=== PATIENT | female | born 1970 | race Asian ===

== ENCOUNTER 2020-09-11 08:59 | Inpatient (IN) | payer BC ==
[~2020-09-11] VITALS: Ht 154.9 cm; Wt 52.6 kg
[2020-09-11 09:04] VITALS: BP 137/97
[2020-09-11] MEDS ORDERED: KETOROLAC 30 MG/ML VIAL IM ONE (09:35)
--- NOTE | 2020-09-11 09:51 | NUR ---
ophthalmology surgical technician at pt bedside.
--- NOTE | 2020-09-11 10:05 | NUR ---
50 YEAR OLD FEMALE COMPLAINS OF LEFT HIP PAIN X TODAY. PT DENIES INJURY OR FALLING. PT UNABLE TO AMBULATE DUE TO PAIN. PT AOX4, BREATHING EVEN AND UNLABORED, SKIN WARM AND DRY. BED IN LOWEST POSITION, LOCKED, BED RAIL UPX1. PMH - DENIES ALLERGIES - NKA
--- NOTE | 2020-09-11 10:51 | NUR ---
PT CONSENT FOR CT SIGNED
[2020-09-11 10:54] LABS: BASOPHILS # (AUTO) 0.1 K/uL (0.00-0.22); BASOPHILS % (AUTO) 0.7 % (0.0-2.0); EOSINOPHILS % (AUTO) 0.4 % (0.0-4.0); HEMATOCRIT 37.6 % (36-48); HEMOGLOBIN 12.7 g/dL (12.0-16.0); LYMPHOCYTES # (AUTO) 0.8 K/uL (2.5-16.5); MEAN CORPUSCULAR HEMOGLOBIN 30 pg (27-31); MEAN CORPUSCULAR HGB CONC 34 g/dL (33-37); MEAN CORPUSCULAR VOLUME 88.6 fL (80-94); MONOCYTES # (AUTO) 0.5 K/uL (0.8-1.0); MONOCYTES % (AUTO) 5.6 % (1.7-9.3); NEUTROPHILS # (AUTO) 7.5 K/uL (1.8-7.7); PLATELET COUNT (AUTO) 255 K/uL (140-450); RED BLOOD CELL COUNT(AUTO) 4.24 MIL/uL (4.20-5.40); RED CELL DISTRIBUTION WIDTH 13.6 % (11.6-13.7); WHITE BLOOD COUNT (AUTO) 8.9 K/uL (4.8-10.8)
[2020-09-11 11:03] LABS: ANION GAP 11.6 (8-16); CARBON DIOXIDE 26.1 mmol/L (21-32); CREATININE 0.7 mg/dL (0.6-1.3); POTASSIUM 3.7 mmol/L (3.5-5.1)
[2020-09-11 11:11] LABS: BILIRUBIN,DIRECT 0.1 mg/dL (0.0-0.3); TOTAL BILIRUBIN 0.3 mg/dL (0.0-1.0)
[2020-09-11 11:12] LABS: LYMPHOCYTES % (AUTO) 8.7 % (20.5-51.1); NEUTROPHILS % (AUTO) 84.6 % (42.2-75.2)
--- NOTE | 2020-09-11 12:24 | NUR ---
Dr. Chowdary is evaluating the patient at bedside.
--- NOTE | 2020-09-11 12:30 | NUR ---
PT ALERT AND AWAKE, BREATHING EVEN AND UNLABORED. NO DISTRESS NOTED
[2020-09-11] MEDS ORDERED: HYDROcodone/APAP 10/325 MG 1 TAB TAB PO STA (12:33)
--- NOTE | 2020-09-11 12:41 | NUR ---
COVERING PRIMARY RN FOR LUNCH RELIEF - MEDICATED FOR PAIN ORDERED. WILL REASSESS.
--- NOTE | 2020-09-11 14:05 | NUR ---
Patient will be admitted to care of Dr Duong. Admited to [facility]. Will go to room 117. Belongings list completed. Report to Francesca BLEVINS.
--- NOTE | 2020-09-11 14:32 | NUR ---
PT ARRIVED ON UNIT
--- NOTE | 2020-09-11 15:12 | NUR ---
PT ORIENTED TO ROOM , HOSPITAL POLICY
[2020-09-11] MEDS ORDERED: SODIUM PHOS / POTASSIUM PHOS 1 PKT PDR PO PRN (15:45)
[2020-09-11] MEDS ORDERED: NACL 0.9% 1,000 ML IV SCH ×2 (15:45→16:10)
[2020-09-11] MEDS ORDERED: ACETAMINOPHEN 325 MG TAB PO PRN (15:45)
[2020-09-11] MEDS ORDERED: HYDROcodone/APAP 5/325 MG 1 TAB TAB PO PRN (15:45)
[2020-09-11] MEDS ORDERED: MORPHINE SULFATE 2 MG/ML SYR IVP PRN (15:45)
[2020-09-11] MEDS ORDERED: MAG SULF 2000 MG/WATER PREMIX 50 ML IV PRN (15:45)
[2020-09-11] MEDS ORDERED: DOCUSATE SODIUM 100 MG GELCAP PO PRN (15:45)
[2020-09-11] MEDS ORDERED: ONDANSETRON 4 MG/2 ML VIAL IM/IVP PRN (15:45)
[2020-09-11] MEDS ORDERED: POTASSIUM CHLORIDE 40 MEQ, LIDOCAINE MPF 1% 25 MG in NACL 0.9% 250 ML IV PRN (15:45)
[2020-09-11 16:00] VITALS: BP 122/78
[2020-09-11] MEDS ORDERED: KETOROLAC 15 MG/ML VIAL IVP PRN (16:10)
[2020-09-11] MEDS: CYCLOBENZAPRINE 10 MG TAB PO SCH (17:15)
--- NOTE | 2020-09-11 17:20 | NUR ---
MEDICATIONS GIVEN PER MD ORDER . PT EDUCATED. VERBALIZED UNDERSTANDING.
[2020-09-11 17:30] LABS: MAGNESIUM 2.1 mg/dL (1.8-2.4); PHOSPHORUS 4.5 mg/dL (2.5-4.9)
--- NOTE | 2020-09-11 19:26 | NUR ---
PT ENDORSED TO HOME WEATHERIZING WORKER RN FOR CONTINUITY OF CARE
--- NOTE | 2020-09-11 19:27 | NUR ---
REPORT GIVEN FROM MORNING RN. PATIENT IN BED AWAKE, NO SOB NOTED. DENIES PAIN. VISITOR AT BEDSIDE. CALL LIGHT WITHIN REACH.
[2020-09-12] VITALS: BP 127/79
--- NOTE | 2020-09-12 01:16 | NUR ---
CHECKED PATIENT IS ASLEEP.
--- NOTE | 2020-09-12 06:00 | NUR ---
PATIENT IS UP TO RESTROOM. DENIES PAIN.
[2020-09-12 07:04] LABS: ANION GAP 14.8 (8-16); CARBON DIOXIDE 23.4 mmol/L (21-32); CREATININE 0.7 mg/dL (0.6-1.3); POTASSIUM 4.2 mmol/L (3.5-5.1)
[2020-09-12 07:09] LABS: BASOPHILS % (AUTO) 0.4 % (0.0-2.0); CHOL/HDL RATIO 4.2 (1-4.5); EOSINOPHILS # (AUTO) 0.1 K/uL (0-0.4); HEMATOCRIT 35.2 % (36-48); HEMOGLOBIN 11.9 g/dL (12.0-16.0); LYMPHOCYTES # (AUTO) 0.9 K/uL (2.5-16.5); LYMPHOCYTES % (AUTO) 12.5 % (20.5-51.1); MEAN CORPUSCULAR HEMOGLOBIN 30 pg (27-31); MEAN CORPUSCULAR HGB CONC 34 g/dL (33-37); MEAN CORPUSCULAR VOLUME 89.2 fL (80-94); MONOCYTES # (AUTO) 0.5 K/uL (0.8-1.0); MONOCYTES % (AUTO) 7.4 % (1.7-9.3); NEUTROPHILS # (AUTO) 5.7 K/uL (1.8-7.7); NEUTROPHILS % (AUTO) 78.7 % (42.2-75.2); PLATELET COUNT (AUTO) 218 K/uL (140-450); RED BLOOD CELL COUNT(AUTO) 3.95 MIL/uL (4.20-5.40); RED CELL DISTRIBUTION WIDTH 13.4 % (11.6-13.7); WHITE BLOOD COUNT (AUTO) 7.2 K/uL (4.8-10.8)
--- NOTE | 2020-09-12 07:15 | NUR ---
RECEIVED REPORT FROM CORPORATE ASSOCIATE NURSE OF CONTINUITY OF CARE. PATIENT AWAKE AND ALERT. BREATHING IS EVEN AN UNLABORED. PATIENT HAS RIGHT AC 20G WITH NS 40ML/HR. ALL SAFETY MEASURES IN PLACE. WILL CONTINUE TO MONITOR.
--- NOTE | 2020-09-12 07:27 | NUR ---
PATIENT HAS BEEN SCREENED AND CATEGORIZED LOW NUTRITION RISK. PATIENT WILL BE SEEN WITHIN 7 DAYS OF ADMISSION. 09/18/20 JOSEFINA BEE MS, RDN
--- NOTE | 2020-09-12 07:30 | NUR ---
ENDORSED TO MORNING RN FOR CONTINUITY OF CARE. PATIENT IS STABLE.
[2020-09-12 08:00] VITALS: BP 122/81
[2020-09-12] MEDS ORDERED: CRUSHER, PILL MC ONE (08:28)
[2020-09-12] MEDS: CYCLOBENZAPRINE 10 MG TAB PO SCH (08:30)
--- NOTE | 2020-09-12 08:31 | NUR ---
PATIENT AWAKE LAYING IN BED. BREATHING EVEN AND UNLABORED. ROUTINE MEDICATION GIVE. PATIENT COMPLIANT WITH MEDICATION. SAFETY MEASURES IN PLACE WILL CONTINUE TO MONITOR.
--- NOTE | 2020-09-12 10:10 | NUR ---
PATIENT LAYING IN BED. PATIENT WATCHING TV. AT BEDSIDE. ALL SAFETY MEASURES IN PLACE WILL CONTINUE TO MONITOR.
[2020-09-12] MEDS ORDERED: CYCL10TA14 PO (11:19)
[2020-09-12] MEDS ORDERED: IBUP-2213 PO (11:19)
--- NOTE | 2020-09-12 12:16 | NUR ---
PATIENT AWAKE AND ALERT. PATIENT BREATHING IS EVEN AND UNLABORED. PATIENT AT BEDSIDE. ALL SAFETY MEASURES IN PLACE. WILL CONTINUE TO MONITOR.
[2020-09-12 12:33] VITALS: BP 122/81
--- NOTE | 2020-09-12 13:40 | NUR ---
PATIENT EDUCATED ON DISCHARGE INFORMATION. PATIENT GIVEN DISCHARGE PAPERWORK. PATIENT SIGNED ALL NEEDED DOCUMENTS. PATIENT VERBALIZE UNDERSTANDING. ALL BELONGING TAKEN. PATIENT TAKEN TO FRONT BY WHEELCHAIR. WAITING AT [facility].
== END 2020-09-12 13:40 | disposition home or self-care (01) | DRG 556 ==
LOC: MED 08:59 → MTU 13:29
PROVIDERS: ADMIT Hospitalist; ATTEND Hospitalist
DX: M25.552 Pain in left hip (principal); G43.909 Migraine, unspecified, not intractable, without status migrainosus; E86.0 Dehydration; K57.30 Diverticulosis of large intestine without perforation or abscess without bleeding; N28.1 Cyst of kidney, acquired; M62.838 Other muscle spasm
CPT/HCPCS: 36415; 72170; 73502; 80048; 80076; 83735; 84100; 85025; 85379; 85651; 86140; 93925; 93971; 96372; 99285; J1885; Q9967